=== PATIENT | female | born 1975 | race Caucasian/White ===

== ENCOUNTER 2019-03-15 07:51 | Outpatient (CLI) | payer BC ==
--- NOTE | 2019-03-15 08:41 | ULT ---
LEFT BREAST ULTRASOUND: Date: 03/15/19 HISTORY: Abnormal screening mammography of 03/07/19 from [facility]. FINDINGS: Correlation is made with the mammograms of 03/07/19. Sonographic evaluation of the left breast demonstrates a 5 mm cyst at the 3 o'clock position of the l eft breast, 1.0 cm from the nipple, corresponding to the mammographic abnormality. IMPRESSION: BIRADS Category 2 - Benign findings. Return to annual mammographic screening. POS: OFF
== END 2019-03-15 07:52 | disposition home or self-care (01) ==
LOC: BICULT 07:51
PROVIDERS: ATTEND Physician Assistant
DX: R92.8 Other abnormal and inconclusive findings on diagnostic imaging of breast (principal)